=== PATIENT | male | born 1985 | race Hispanic/Latino ===

== ENCOUNTER 2020-08-11 19:13 | Emergency (ER) | payer SELFPAY ==
[2020-08-11 19:57] LABS: APPEARANCE,URINE Cloudy (CLEAR); BILIRUBIN,URINE Negative (NEGATIVE); COLOR,URINE Yellow (YELLOW); GLUCOSE, URINE (UA) Negative (NEGATIVE); KETONES,URINE Negative (NEGATIVE); LEUKOCYTE ESTERASE ,URINE Large (NEGATIVE); NITRATE,URINE Negative (NEGATIVE); OCCULT BLOOD,URINE Trace (NEGATIVE); PROTEIN,URINE Negative (NEGATIVE); UROBILINOGEN,URINE 0.2 mg/dL (0.2-1.0)
[2020-08-11] MEDS ORDERED: METOCLOPRAMIDE 10 MG/2 ML VIAL ONE (20:06)
[2020-08-11] MEDS ORDERED: KETOROLAC TROMETHAMINE 30MG/ML ONE (20:06)
[2020-08-11] MEDS ORDERED: SODIUM CHLORIDE 0.9% 1000ML 2,000 ML IV ONE (20:07)
[2020-08-11 20:08] LABS: BASOPHILS % (AUTO) 0.2 % (0.0-5.0); EOSINOPHILS % (AUTO) 0.1 % (0.0-8.0); HEMATOCRIT 40.6 % (42-54); LYMPHOCYTES % (AUTO) 9.8 % (21.0-51.0); MEAN CORPUSCULAR HEMOGLOBIN 30.2 pg (27.0-33.0); MEAN CORPUSCULAR HGB CONC 34.2 g/dL (32.0-36.0); MEAN CORPUSCULAR VOLUME 88.1 fL (79-99); MONOCYTES % (AUTO) 6.8 % (3.0-13.0); NEUTROPHILS % (AUTO) 82.5 % (40.0-77.0); PLATELET COUNT (AUTO) 371 K/uL (130-400); RED BLOOD CELL COUNT(AUTO) 4.61 MIL/uL (4.50-6.20); RED CELL DISTRIBUTION WIDTH 13.9 % (11.0-15.5); WHITE BLOOD COUNT (AUTO) 17.8 K/uL (4.8-10.8)
[2020-08-11 20:20] LABS: RBC,URINE None Seen /HPF (0-1); WBC,URINE 51-100 /HPF (0-1)
[2020-08-11 20:21] LABS: BACTERIA,URINE Rare /HPF (None Seen); SQUAMOUS EPITHELIAL CELL,UR None Seen /HPF (0-2)
[2020-08-11 20:22] LABS: INR 1.01 (0.85-1.15)
[2020-08-11 20:23] LABS: PARTIAL THROMBOPLASTIN TIME 27.8 SEC (26.3-35.5)
[2020-08-11 20:34] LABS: CREATININE 0.8 mg/dL (0.5-1.5); POTASSIUM 4.4 mmol/L (3.5-5.1)
[2020-08-11 20:38] LABS: ALBUMIN 3.6 g/dL (3.5-5.0); BILIRUBIN,TOTAL 0.4 mg/dL (0.2-1.0); TOTAL PROTEIN, SERUM 8.2 g/dL (6.0-8.3)
[2020-08-11] MEDS ORDERED: LEVOFLOXACIN 750 MG/D5W 150 ML 150 ML ONE (21:22)
[2020-08-11] MEDS ORDERED: CEFTRIAXONE SODIUM 1 GM ONE (21:22)
[2020-08-13 21:08] LABS: CHLAMYDIA DNA N.A.AMPLIFY Negative (Negative)
== END 2020-08-12 00:22 | disposition home or self-care (01) ==
LOC: EDH 19:13
DX: N39.0 Urinary tract infection, site not specified (principal); N45.1 Epididymitis; E86.0 Dehydration; N43.3 Hydrocele, unspecified; Z72.0 Tobacco use
CPT/HCPCS: 36415; 74176; 76870; 80053; 81001; 83690; 85025; 85610; 85730; 87088; 87486; 87797; 96361; 96365; 96366; 96375; 99285; J0696; J1885; J1956; J2765; J7030